=== PATIENT | male | born 1985 | race Caucasian/White ===

== ENCOUNTER 2017-03-25 19:02 | Emergency (ER) | payer OTHER | END 2017-03-25 22:31 | disposition home or self-care (01) | LOC: ER1 19:02 | DX: S83.015A Lateral dislocation of left patella, initial encounter (principal); F17.210 Nicotine dependence, cigarettes, uncomplicated; X58.XXXA Exposure to other specified factors, initial encounter; Y93.01 Activity, walking, marching and hiking; Y92.009 Unspecified place in unspecified non-institutional (private) residence as the place of occurrence of the external cause | CPT/HCPCS: 29505; 73564; 96372; 99283; J2270 ==

== ENCOUNTER → 2017-04-04 | Outpatient (CLI) | payer OTHER | LOC: KOH-I 12:26 | DX: M24.462 Recurrent dislocation, left knee (principal); S83.249A Other tear of medial meniscus, current injury, unspecified knee, initial encounter; M67.462 Ganglion, left knee | CPT/HCPCS: 73721 ==